=== PATIENT | male | born 1960 | race Caucasian/White ===

== ENCOUNTER 2022-09-01 01:52 | Outpatient (CLI) | payer MEDICAID, SELFPAY ==
[2022-09-01 14:19] LABS: CREATININE 1.3 mg/dL (0.70-1.30)
[2022-09-01] MEDS: Omnipaque 350 MG/ML 100 ML BTL 70 ML IJ (14:36)
--- NOTE | 2022-09-01 14:43 | DI.CT_ITS ---
Exam(s) CT CHEST W EXAM: CT CHEST W CLINICAL HISTORY: LUNG CANCER C34.32 RESTAGING TECHNIQUE: Imaging Protocol: Axial computed tomography images with coronal and sagittal reformatted images were created and reviewed CONTRAST MATERIAL: Intravenous: Omnipaque 350 Contrast volume:70 cc COMPARISON: CR XR CHEST 2 VIEWS from 05/23/[address] CHEST W/ CNTRST from 06/27/2020 CR XR CHEST 2 VIEWS from 08/30/2020 DX XR CHEST 1 VIEW from 09/29/[address] ANGIOGRAPHY PE CHEST from 09/29/2020 FINDINGS: Pulmonary parenchyma: Significant interval improvement in previously noted left lower lobe perihilar mass. There is minimal residual soft tissue density around the bronchi which shows some wall thicken ing. Minimally increased densities peripherally. No new masses or pulmonary nodules. Tracheobronch ial tree: No bronchiectasis or mucous plugging. Mediastinum and Gail: No dominant adenopathy or fluid collection. Pleura: No effusion or pneumothorax. Resolution of previously noted small left pleural effusion. Heart: The heart is not dilated. Coronary artery stent. Aorta: Thoracic aorta non-dilated. Upper abdomen: Unremarkable. Bones: Milddegenerative changes. No lytic or blastic lesion. No compression fractures. Soft tissues: Unremarkable. IMPRESSION: Significant interval improvement, with near resolution of previously noted left lower lobe mass. RADIATION DOSE DELIVERED: 834.03mGy.cm Total DLP DATA REPOSITORY: All CT scans at this facility are submitted to the National Radiology Data Registry (NRDR) Dose Index Registry (DIR) with the [employer] ([employer]). RADIATION OPTIMIZATION: All CT scans at this facility use at least one of these dose optimization te chniques: automated exposure control; mA and/or kV adjustment per patient size (includes targeted exa ms where dose is matched to clinical indication); or iterative reconstruction.
== END 2022-09-01 02:12 ==
LOC: DI 01:53
PROVIDERS: PCP Nurse Practitioner Acute Care; Visit Provider Radiology Radiation Oncology
DX: C34.32 Malignant neoplasm of lower lobe, left bronchus or lung (principal)
CPT/HCPCS: 71260; 82565; J3490